=== PATIENT | male | born 1940 | race African-American/Black ===

== ENCOUNTER → 2017-01-13 | Outpatient (CLI) | payer MEDICARE, MEDICAID | END | disposition home or self-care (01) | LOC: NM 07:37 | PROVIDERS: ATTEND Urology | DX: C61 Malignant neoplasm of prostate (principal); N40.0 Benign prostatic hyperplasia without lower urinary tract symptoms; M47.816 Spondylosis without myelopathy or radiculopathy, lumbar region; M16.0 Bilateral primary osteoarthritis of hip; M17.0 Bilateral primary osteoarthritis of knee | CPT/HCPCS: 72192; 78306; A9503 ==

== ENCOUNTER → 2018-10-18 | Outpatient (CLI) | payer MEDICARE, MEDICAID | END | disposition home or self-care (01) | LOC: CT 12:25 | PROVIDERS: ATTEND Internal Medicine Cardiovascular Disease | DX: J43.9 Emphysema, unspecified (principal); Z91.81 History of falling | CPT/HCPCS: 71250 ==

== ENCOUNTER 2019-05-24 09:14 | Inpatient (IN) | payer MEDICARE, MEDICAID ==
[~2019-05-24] VITALS: Ht 175.3 cm; Wt 82.2 kg
[2019-05-24] MEDS ORDERED: CLOP75TA4 PO (11:48)
[2019-05-24] MEDS ORDERED: AMLO10TA80 PO (11:48)
[2019-05-24] MEDS ORDERED: LISI-604 PO (11:48)
[2019-05-24] MEDS ORDERED: ATOR20TA65 PO (11:48)
[2019-05-24 13:07] LABS: BASOPHILS % 0.4 % (0.0-2.0); EOSINOPHILS % 8.9 % (0.0-5.0); HEMATOCRIT. 29.5 % (42.0-52.0); HEMOGLOBIN. 9.3 g/dL (14.0-18.0); LYMPHOCYTES % 17.6 % (20.0-50.0); MEAN CORPUSCULAR HEMOGLOBIN 24.8 pg (28.0-32.0); MEAN CORPUSCULAR VOLUME 78.5 fL (80.0-94.0); MONOCYTES % 10.2 % (2.0-8.0); NEUTROPHILS % 62.9 % (40.0-76.0); PLATELET 178 x1000/uL (130-400); RED BLOOD CELL COUNT 3.75 mill/uL (4.7-6.1); RED CELL DISTRIBUTION WIDTH 16.3 % (11.6-14.6)
[2019-05-24 13:49] LABS: INR 1.2; PARTIAL THROMBOPLASTIN TIME 29.7 sec (23.4-31.0); PROTHROMBIN TIME 12.4 sec (9.6-11.0)
[2019-05-24] MEDS ORDERED: BUPIVACAINE HCL/PF 0.5% (5MG/ML) 10ML ONE (14:19)
[2019-05-24] MEDS ORDERED: THROMBIN (BOVINE) 5000 UNITS/VIAL TOP ONE ×3 (14:19→15:52)
[2019-05-24] MEDS ORDERED: LIDOCAINE HCL 1% 20ML VIAL (Pyxis) INJ ONE (14:19)
[2019-05-24] MEDS ORDERED: BACITRACIN 50,000 UNITS/VIAL ONE (14:19)
[2019-05-24] MEDS ORDERED: HEPARIN SODIUM 1,000 UNIT/1ML VIAL IV ONE (14:20)
[2019-05-24] MEDS ORDERED: BACITRACIN 15GM TUBE TOP ONE ×2 (14:20→16:12)
[2019-05-24] MEDS ORDERED: PROPOFOL 200MG/20ML VIAL IV ONE (15:00)
[2019-05-24] MEDS ORDERED: FENTANYL CITRATE/PF 50MCG/ML 2ML VIAL ONE (15:00)
[2019-05-24] MEDS ORDERED: IPRATROPIUM/ALBUTEROL 0.5-3(2.5)MG/3ML NEB HHN PRN (15:15)
[2019-05-24] MEDS ORDERED: ACETAMINOPHEN 325MG TABLET PO PRN (15:15)
[2019-05-24] MEDS ORDERED: GUAIFENESIN 200MG/10ML SUGAR FREE UDC PO PRN (15:15)
[2019-05-24] MEDS ORDERED: DOCUSATE SODIUM 100MG CAPSULE PO PRN (15:15)
[2019-05-24] MEDS ORDERED: MAGNESIUM/ALUMINUM HYDROXIDE/SIMETHICONE 30ML UDC PO PRN (15:15)
[2019-05-24] MEDS ORDERED: ONDANSETRON HCL 4MG/2ML INJ IV PRN ×2 (15:15→16:30)
[2019-05-24] MEDS ORDERED: DIPHENHYDRAMINE 50MG/ML VIAL IV PRN (15:15)
[2019-05-24] MEDS ORDERED: MIDAZOLAM HCL 2 MG/2 ML VIAL ONE (15:16)
[2019-05-24] MEDS ORDERED: METOCLOPRAMIDE HCL 10MG/2ML VIAL ONE (16:21)
[2019-05-24] MEDS ORDERED: MEPERIDINE HCL/PF 25MG/ML CPJ IV PRN (16:30)
[2019-05-24] MEDS ORDERED: HYDROMORPHONE HCL/PF 2MG/ML CPJ IV PRN (16:30)
[2019-05-24] MEDS ORDERED: MORPHINE SULFATE 2 MG/ML CPJ (NOT FOR IM USE) IV PRN (16:30)
[2019-05-24] MEDS ORDERED: SODIUM CHLORIDE 0.9% 1,000 ML IV ONE (16:48)
[2019-05-24 18:52] LABS: HEMATOCRIT 30.9 % (42.0-52.0); HEMOGLOBIN 9.5 g/dL (14.0-18.0); MEAN CORPUSCULAR HEMOGLOBIN 24.6 pg (28.0-32.0); MEAN CORPUSCULAR VOLUME 79.8 fL (80.0-94.0); PLATELET 180 x1000/uL (130-400); RED BLOOD CELL COUNT 3.87 mill/uL (4.7-6.1); RED CELL DISTRIBUTION WIDTH 16.6 % (11.6-14.6)
[2019-05-24 19:06] LABS: PHOSPHORUS 4.2 mg/dL (2.5-4.9)
[2019-05-24] MEDS: CLONIDINE 0.1MG TABLET PO PRN (21:24)
[2019-05-24] MEDS ORDERED: CEFAZOLIN SODIUM 1000MG/VIAL IV SCH (22:00)
[2019-05-24 22:42] VITALS: BP 172/96
[2019-05-25] MEDS: CEFAZOLIN 1000MG PREMIX 50 ML IV SCH ×4 (01:11→23:26)
[2019-05-25 07:32] LABS: HEMATOCRIT. 25.7 % (42.0-52.0); HEMOGLOBIN. 8.3 g/dL (14.0-18.0); MEAN CORPUSCULAR VOLUME 77.9 fL (80.0-94.0); MEAN PLATELET VOLUME 8.1 fl (7.4-10.4); PLATELET 164 x1000/uL (130-400); RED CELL DISTRIBUTION WIDTH 16.3 % (11.6-14.6)
[2019-05-25 08:00] VITALS: BP 152/75
[2019-05-25] MEDS: MORPHINE SULFATE 4 MG/ML CPJ (NOT FOR IM USE) IV PRN ×2 (09:30→16:51)
[2019-05-25 12:00] VITALS: BP 134/64
[2019-05-25 16:00] VITALS: BP 144/47
[2019-05-25 17:09] LABS: PLATELET ESTIMATE NORMAL
[2019-05-25] MEDS ORDERED: DEXTROSE 50% WATER 50ML SYRINGE IV PRN (19:30)
[2019-05-25 20:00] VITALS: BP 147/68
[2019-05-25] MEDS: BLOOD SUGAR DIAGNOSTIC STRIP TEST SCH (20:39)
[2019-05-25] MEDS: INSULIN LISPRO 100 UNITS/ML SUBCUT SCH (20:39)
[2019-05-26] VITALS: BP 167/73
[2019-05-26] MEDS: CLONIDINE 0.1MG TABLET PO PRN (01:04)
[2019-05-26 04:00] VITALS: BP 168/84
[2019-05-26] MEDS: MORPHINE SULFATE 4 MG/ML CPJ (NOT FOR IM USE) IV PRN (04:18)
[2019-05-26] MEDS: INSULIN LISPRO 100 UNITS/ML SUBCUT SCH ×2 (07:27→12:50)
[2019-05-26] MEDS: BLOOD SUGAR DIAGNOSTIC STRIP TEST SCH ×2 (07:27→12:20)
[2019-05-26] MEDS: CEFAZOLIN 1000MG PREMIX 50 ML IV SCH (07:47)
[2019-05-26 08:00] VITALS: BP 153/72
[2019-05-26 12:00] VITALS: BP 155/73
[2019-05-26 14:23] VITALS: BP 152/89
== END 2019-05-26 15:24 | disposition home or self-care (01) | DRG 253 ==
LOC: OR 09:14 → 6EST 20:28
PROVIDERS: ADMIT Internal Medicine; ATTEND Internal Medicine
PROC: 03PY0JZ Removal of Synthetic Substitute from Upper Artery, Open Approach (ICD-10-PCS; principal; 2019-05-24)
PROC: 04PY0JZ Removal of Synthetic Substitute from Lower Artery, Open Approach (ICD-10-PCS; 2019-05-24)
DX: T82.7XXA Infection and inflammatory reaction due to other cardiac and vascular devices, implants and grafts, initial encounter (principal); N17.9 Acute kidney failure, unspecified; D50.9 Iron deficiency anemia, unspecified; D72.1 Eosinophilia; F17.210 Nicotine dependence, cigarettes, uncomplicated; I10 Essential (primary) hypertension; I73.9 Peripheral vascular disease, unspecified; J44.9 Chronic obstructive pulmonary disease, unspecified; Y83.2 Surgical operation with anastomosis, bypass or graft as the cause of abnormal reaction of the patient, or of later complication, without mention of misadventure at the time of the procedure; Y92.89 Other specified places as the place of occurrence of the external cause
CPT/HCPCS: 36415; 80048; 80061; 82962; 83735; 84100; 84443; 85027; 86850; 86900; 86920; 87070; 87075; 88304; 93005; 97162; J0690; J1170; J1644; J2250; J2270; J2405; J2704; J2765; J3010; J3490; J7040

== ENCOUNTER 2019-09-17 11:11 | Inpatient (IN) | payer MEDICARE, MEDICAID ==
[~2019-09-17] VITALS: Ht 182.9 cm; Wt 818.3 kg
[~2019-09-17 11:11] MED LIST: AMLO10TA80 PO; ATOR20TA65 PO; CLOP75TA4 PO; LISI-604 PO
[2019-09-17 12:24] LABS: BASOPHILS % 0.5 % (0.0-2.0); EOSINOPHILS % 12.3 % (0.0-5.0); HEMATOCRIT. 22.4 % (42.0-52.0); LYMPHOCYTES % 16.2 % (20.0-50.0); MEAN CORPUSCULAR HEMOGLOBIN 20.9 pg (28.0-32.0); MEAN CORPUSCULAR VOLUME 68.6 fL (80.0-94.0); MEAN PLATELET VOLUME 8.6 fl (7.4-10.4); MONOCYTES % 7.9 % (2.0-8.0); NEUTROPHILS % 63.1 % (40.0-76.0); PLATELET 188 x1000/uL (130-400); RED BLOOD CELL COUNT 3.26 mill/uL (4.7-6.1); RED CELL DISTRIBUTION WIDTH 18.5 % (11.6-14.6)
[2019-09-17 12:27] LABS: HEMOGLOBIN. 6.8 g/dL (14.0-18.0)
[2019-09-17] MEDS ORDERED: SODIUM CHLORIDE 0.9% 1,000 ML IV ONE (12:32)
[2019-09-17 12:37] LABS: INR 1.2; PROTHROMBIN TIME 11.9 sec (9.6-11.0)
[2019-09-17 12:50] LABS: PLATELET ESTIMATE NORMAL
[2019-09-17] MEDS ORDERED: ONDANSETRON HCL 4MG/2ML INJ IV PRN (13:15)
[2019-09-17] MEDS ORDERED: IPRATROPIUM/ALBUTEROL 0.5-3(2.5)MG/3ML NEB HHN PRN (13:15)
[2019-09-17] MEDS ORDERED: ACETAMINOPHEN 325MG TABLET PO PRN (13:15)
[2019-09-17] MEDS ORDERED: DIPHENHYDRAMINE 50MG/ML VIAL IV PRN (13:15)
[2019-09-17] MEDS ORDERED: CLONIDINE 0.1MG TABLET PO PRN (13:15)
[2019-09-17 13:23] LABS: CHLORIDE 117 mEq/L (98-107)
[2019-09-17 14:53] LABS: CLARITY URINE CLEAR (CLEAR); COLOR URINE YELLOW (YELLOW); KETONES URINE NEGATIVE (NEGATIVE); LEUKOCYTE ESTERASE URINE NEGATIVE (NEGATIVE); NITRITE URINE NEGATIVE (NEGATIVE); OCCULT BLOOD URINE NEGATIVE (NEGATIVE); PROTEIN URINE 1+ (NEGATIVE); SPECIFIC GRAVITY URINE 1.014 (1.005-1.030); UROBILINOGEN URINE 0.2 E.U./dL (0.2-1.0)
[2019-09-17 15:05] LABS: PHOSPHORUS 3.8 mg/dL (2.5-4.9)
[2019-09-17 15:41] LABS: TOTAL IRON BINDING CAPACITY 313 ug/dL (250-450)
[2019-09-17 15:45] VITALS: BP 141/72
[2019-09-17 16:00] VITALS: BP 141/72
[2019-09-17 16:10] LABS: FOLIC ACID (FOLATE) SERUM 12.9 ng/mL (>5.38)
[2019-09-17 16:45] VITALS: BP 158/74
[2019-09-17] MEDS: DOCUSATE SODIUM 100MG CAPSULE PO SCH (17:45)
[2019-09-17 20:00] VITALS: BP 152/79
[2019-09-17] MEDS: ATORVASTATIN CALCIUM 20MG TABLET PO SCH (20:45)
[2019-09-17] MEDS: AMLODIPINE 5MG TABLET PO SCH (20:45)
[2019-09-17] MEDS: PANTOPRAZOLE SODIUM 40 MG/VIAL IV SCH (20:49)
[2019-09-17] MEDS: IRON SUCROSE COMPLEX 100 MG/5 ML ML IV SCH (20:54)
[2019-09-17] MEDS: POLYETHYLENE GLYCOL 3350 (17GM) 1 DOSE PACK PO SCH (20:55)
[2019-09-17] MEDS ORDERED: ATORVASTATIN CALCIUM 20MG TABLET PO SCH (21:00)
[2019-09-18] VITALS (12 sets, daily range): BP systolic 122–158; BP diastolic 68–84
[2019-09-18 00:26] LABS: HEMATOCRIT 23.5 % (42.0-52.0); HEMOGLOBIN 7.4 g/dL (14.0-18.0)
[2019-09-18] MEDS: AMLODIPINE 5MG TABLET PO SCH ×3 (09:00→21:11)
[2019-09-18] MEDS ORDERED: AMLODIPINE 10MG TABLET PO SCH (09:00)
[2019-09-18] MEDS: DOCUSATE SODIUM 100MG CAPSULE PO SCH ×2 (09:00→17:26)
[2019-09-18 09:36] LABS: BASOPHILS % 0.6 % (0.0-2.0); EOSINOPHILS % 8.9 % (0.0-5.0); HEMOGLOBIN. 9.9 g/dL (14.0-18.0); LYMPHOCYTES % 9.3 % (20.0-50.0); MEAN CORPUSCULAR HEMOGLOBIN 22.7 pg (28.0-32.0); MEAN CORPUSCULAR VOLUME 71.3 fL (80.0-94.0); MEAN PLATELET VOLUME 8.5 fl (7.4-10.4); MONOCYTES % 5.9 % (2.0-8.0); NEUTROPHILS % 75.3 % (40.0-76.0); PLATELET 185 x1000/uL (130-400); RED BLOOD CELL COUNT 4.34 mill/uL (4.7-6.1); RED CELL DISTRIBUTION WIDTH 21.3 % (11.6-14.6)
[2019-09-18] MEDS: PANTOPRAZOLE SODIUM 40 MG/VIAL IV SCH (09:44)
[2019-09-18 09:50] LABS: CHLORIDE 115 mEq/L (98-107)
[2019-09-18 10:08] LABS: PHOSPHORUS 3.7 mg/dL (2.5-4.9)
[2019-09-18 10:09] LABS: LDL CHOLESTEROL 77 mg/dL (5-100)
[2019-09-18 10:10] LABS: HDL CHOLESTEROL 54 mg/dL (40-59)
[2019-09-18] MEDS ORDERED: MIDAZOLAM HCL 5 MG/5 ML VIAL ONE (13:13)
[2019-09-18] MEDS ORDERED: FENTANYL CITRATE/PF 50MCG/ML 2ML VIAL ONE (13:14)
[2019-09-18] MEDS ORDERED: FENTANYL CITRATE/PF 50MCG/ML 2ML VIAL IV ONE (13:30)
[2019-09-18] MEDS ORDERED: MIDAZOLAM HCL 2 MG/2 ML VIAL IV ONE (13:30)
[2019-09-18] MEDS: FERROUS SULFATE 325MG TABLET PO SCH (17:26)
[2019-09-18] MEDS: IRON SUCROSE COMPLEX 100 MG/5 ML ML IV SCH ×2 (21:00→21:11)
[2019-09-18] MEDS: POLYETHYLENE GLYCOL 3350 (17GM) 1 DOSE PACK PO SCH ×2 (21:00→21:11)
[2019-09-18] MEDS: ATORVASTATIN CALCIUM 20MG TABLET PO SCH ×2 (21:00→21:11)
[2019-09-19 04:00] VITALS: BP 160/80
[2019-09-19 07:01] LABS: BASOPHILS % 0.4 % (0.0-2.0); EOSINOPHILS % 8.7 % (0.0-5.0); HEMATOCRIT. 27.8 % (42.0-52.0); LYMPHOCYTES % 13.2 % (20.0-50.0); MEAN CORPUSCULAR HEMOGLOBIN 23.1 pg (28.0-32.0); MEAN CORPUSCULAR VOLUME 71.5 fL (80.0-94.0); MONOCYTES % 10.2 % (2.0-8.0); NEUTROPHILS % 67.5 % (40.0-76.0); PLATELET 165 x1000/uL (130-400); RED BLOOD CELL COUNT 3.89 mill/uL (4.7-6.1); RED CELL DISTRIBUTION WIDTH 21.1 % (11.6-14.6)
[2019-09-19 08:00] VITALS: BP 166/91
[2019-09-19] MEDS: DOCUSATE SODIUM 100MG CAPSULE PO SCH ×2 (08:26→17:40)
[2019-09-19] MEDS: AMLODIPINE 5MG TABLET PO SCH (08:26)
[2019-09-19] MEDS: FERROUS SULFATE 325MG TABLET PO SCH ×2 (08:26→17:41)
[2019-09-19 12:00] VITALS: BP 114/67
[2019-09-19] MEDS ORDERED: FERR325T6 MT (15:34)
[2019-09-19 16:00] VITALS: BP 133/77
[2019-09-19 16:56] VITALS: BP 133/71
== END 2019-09-19 18:15 | disposition home or self-care (01) | DRG 378 ==
LOC: ER 11:43 → 7WST 12:56 → EDBEDREQTM 13:07 → EDBEDREQ 13:07 → ENRESERV 13:44
PROVIDERS: ADMIT Internal Medicine; ATTEND Internal Medicine
PROC: 30233N1 Transfusion of Nonautologous Red Blood Cells into Peripheral Vein, Percutaneous Approach (ICD-10-PCS; principal; 2019-09-18)
PROC: 0DJ08ZZ Inspection of Upper Intestinal Tract, Via Natural or Artificial Opening Endoscopic (ICD-10-PCS; 2019-09-18)
DX: K92.2 Gastrointestinal hemorrhage, unspecified (principal); C18.9 Malignant neoplasm of colon, unspecified; D62 Acute posthemorrhagic anemia; I13.0 Hypertensive heart and chronic kidney disease with heart failure and stage 1 through stage 4 chronic kidney disease, or unspecified chronic kidney disease; N17.9 Acute kidney failure, unspecified; E78.5 Hyperlipidemia, unspecified; D63.0 Anemia in neoplastic disease; F17.210 Nicotine dependence, cigarettes, uncomplicated; I50.9 Heart failure, unspecified; J32.9 Chronic sinusitis, unspecified; I73.9 Peripheral vascular disease, unspecified; I44.1 Atrioventricular block, second degree; J44.9 Chronic obstructive pulmonary disease, unspecified; N18.3 Chronic kidney disease, stage 3 (moderate); D50.9 Iron deficiency anemia, unspecified; Z85.46 Personal history of malignant neoplasm of prostate; Z86.73 Personal history of transient ischemic attack (TIA), and cerebral infarction without residual deficits; Z92.3 Personal history of irradiation; Z82.49 Family history of ischemic heart disease and other diseases of the circulatory system; K31.819 Angiodysplasia of stomach and duodenum without bleeding
CPT/HCPCS: 36415; 71045; 80048; 80053; 80061; 81003; 82607; 82728; 82746; 83540; 83550; 83735; 84100; 84443; 85014; 85018; 85025; 85049; 85384; 86850; 86900; 86920; 93005; 93970; 99285; A6261; C9113; J2250; J3010; J7030; P9016; P9021

== ENCOUNTER 2021-06-29 14:37 | Inpatient (IN) | payer MEDICARE, MEDICAID ==
[~2021-06-29] VITALS: Ht 180.3 cm; Wt 75.7 kg
[~2021-06-29 14:37] MED LIST changes: -CLOP75TA4 PO; +FERR325T6 MT; -LISI-604 PO
[2021-06-29 16:22] LABS: BG BASE EXCESS -4.6 mmol/L (-2.0-2.0); BG CARBOXYHEMOGLOBIN 1.1 % (0.5-1.5); BG DEOXYHEMOGLOBIN 3.6 % (0.0-5.0); BG FRACTION INSPIRED OXYGEN 21; BG HCO3 ACT 19.4 mmol/L (22.0-26.0); BG METHEMOGLOBIN 0.2 % (0.0-1.5); BG OXYGEN SATURATION 96.4 % (92.0-98.5); BG OXYHEMOGLOBIN 95.1 % (94.0-97.0); BG PCO2 31.6 mmHg (35.0-45.0); BG PH 7.405 (7.350-7.450); BG PO2 85.5 mmHg (75.0-100.0); BG SAMPLE SITE LEFT RADIAL; BG VENT MODE ROOM AIR
[2021-06-29 17:35] LABS: BASOPHILS % 0.6 % (0.0-2.0); EOSINOPHILS % 6.3 % (0.0-5.0); HEMATOCRIT. 30.2 % (42.0-52.0); HEMOGLOBIN. 9.6 g/dL (14.0-18.0); LYMPHOCYTES % 12.7 % (20.0-50.0); MEAN CORPUSCULAR HEMOGLOBIN 25.3 pg (28.0-32.0); MEAN CORPUSCULAR VOLUME 79.4 fL (80.0-94.0); MEAN PLATELET VOLUME 8.3 fl (7.4-10.4); MONOCYTES % 8.4 % (2.0-8.0); PLATELET 188 x1000/uL (130-400); RED BLOOD CELL COUNT 3.81 mill/uL (4.7-6.1); RED CELL DISTRIBUTION WIDTH 16.5 % (11.6-14.6)
[2021-06-29 17:42] LABS: CHLORIDE 113 mEq/L (98-107)
[2021-06-29 17:45] LABS: ETHANOL BLOOD < 10 mg/dL
[2021-06-29] MEDS ORDERED: SODIUM CHLORIDE 0.9% 1,000 ML IV ONE (18:30)
[2021-06-29 21:01] LABS: CLARITY URINE CLEAR (CLEAR); COLOR URINE YELLOW (YELLOW); KETONES URINE NEGATIVE (NEGATIVE); LEUKOCYTE ESTERASE URINE NEGATIVE (NEGATIVE); NITRITE URINE NEGATIVE (NEGATIVE); OCCULT BLOOD URINE 1+ (NEGATIVE); PH URINE 5.5 (4.5-8.0); PROTEIN URINE 3+ (NEGATIVE); SPECIFIC GRAVITY URINE 1.016 (1.005-1.030); UROBILINOGEN URINE 0.2 E.U./dL (0.2-1.0)
[2021-06-29 21:12] LABS: *AMPHETAMINES SCREEN URINE NEGATIVE (NEGATIVE); *BARBITURATES SCREEN URINE NEGATIVE (NEGATIVE); *BENZODIAZEPINES SCREEN URINE NEGATIVE (NEGATIVE); *COCAINE SCREEN URINE NEGATIVE (NEGATIVE); METHADONE URINE SCREEN NEGATIVE (NEGATIVE); OPIATES URINE SCREEN NEGATIVE (NEGATIVE); PHENCYCLIDINE URINE SCREEN NEGATIVE (NEGATIVE)
[2021-06-29 21:13] LABS: CANNABINOID URINE SCREEN NEGATIVE (NEGATIVE)
[2021-06-30] MEDS ORDERED: GUAIFENESIN 200MG/10ML SUGAR FREE UDC PO PRN (01:45)
[2021-06-30] MEDS ORDERED: ONDANSETRON HCL 4MG/2ML INJ IV PRN (01:45)
[2021-06-30] MEDS ORDERED: IPRATROPIUM/ALBUTEROL 0.5-3(2.5)MG/3ML NEB NEB PRN (01:45)
[2021-06-30] MEDS ORDERED: ACETAMINOPHEN 325MG TABLET PO PRN ×2 (01:45)
[2021-06-30] MEDS: SODIUM CHLORIDE 0.9% INJ 3ML FLUSH IVF SCH ×3 (06:03→22:41)
[2021-06-30] MEDS: ENOXAPARIN 30MG/0.3ML SYR SUBCUT SCH (10:02)
[2021-06-30] MEDS ORDERED: LORAZEPAM 2MG/ML CPJ IV PRN (17:53)
[2021-07-01] VITALS: BP 146/86
[2021-07-01 04:00] VITALS: BP 168/79
[2021-07-01 04:37] LABS: PHOSPHORUS 3.6 mg/dL (2.5-4.9)
[2021-07-01] MEDS: SODIUM CHLORIDE 0.9% INJ 3ML FLUSH IVF SCH ×3 (06:32→21:54)
[2021-07-01] MEDS ORDERED: CLOP75TA33 PO (06:44)
[2021-07-01] MEDS ORDERED: HYDR-4009 PO (06:44)
[2021-07-01] MEDS ORDERED: LISI20TA31 PO (06:44)
[2021-07-01] MEDS ORDERED: ASPI-1406 PO (06:44)
[2021-07-01 08:00] VITALS: BP 177/96
[2021-07-01] MEDS ORDERED: PNEUMOCOCCAL 23-VAL P-SAC VAC 0.5 ML IM ONE (08:00)
[2021-07-01] MEDS ORDERED: INFLUENZA VACCINE 05/PF 0.5 ML SYRINGE IM ONE (10:00)
[2021-07-01] MEDS: CLONIDINE 0.1MG TABLET PO PRN ×3 (10:04→18:48)
[2021-07-01] MEDS: ENOXAPARIN 30MG/0.3ML SYR SUBCUT SCH (11:31)
[2021-07-01 12:00] VITALS: BP 108/64
[2021-07-01 16:00] VITALS: BP 99/64
[2021-07-01 20:00] VITALS: BP 153/66
[2021-07-01] MEDS: ATORVASTATIN CALCIUM 20MG TABLET PO SCH (21:54)
[2021-07-02] VITALS: BP 157/80
[2021-07-02 04:00] VITALS: BP 172/76
[2021-07-02] MEDS: SODIUM CHLORIDE 0.9% INJ 3ML FLUSH IVF SCH ×3 (06:27→21:09)
[2021-07-02 08:00] VITALS: BP 172/88
[2021-07-02] MEDS: CLONIDINE 0.1MG TABLET PO PRN (09:17)
[2021-07-02] MEDS: ENOXAPARIN 30MG/0.3ML SYR SUBCUT SCH (09:18)
[2021-07-02 12:05] VITALS: BP 136/69
[2021-07-02] MEDS: ASPIRIN 81MG TABLET PO SCH (12:06)
[2021-07-02 15:32] VITALS: BP 133/66
[2021-07-02] MEDS: DILTIAZEM HCL 120MG CAPSULE CD 24HR PO SCH (15:42)
[2021-07-02] MEDS ORDERED: DILT120C88 PO (19:27)
[2021-07-02] MEDS ORDERED: ATOR20TA PO (19:27)
[2021-07-02 20:00] VITALS: BP 144/67
[2021-07-02] MEDS: ATORVASTATIN CALCIUM 20MG TABLET PO SCH (21:09)
[2021-07-02 21:34] LABS: BASOPHILS % 0.7 % (0.0-2.0); EOSINOPHILS % 8.1 % (0.0-5.0); HEMATOCRIT. 28.6 % (42.0-52.0); HEMOGLOBIN. 9.2 g/dL (14.0-18.0); LYMPHOCYTES % 13.4 % (20.0-50.0); MEAN CORPUSCULAR HEMOGLOBIN 25.6 pg (28.0-32.0); MEAN CORPUSCULAR VOLUME 79.7 fL (80.0-94.0); MEAN PLATELET VOLUME 7.8 fl (7.4-10.4); MONOCYTES % 9.5 % (2.0-8.0); NEUTROPHILS % 68.3 % (40.0-76.0); PLATELET 150 x1000/uL (130-400); RED BLOOD CELL COUNT 3.59 mill/uL (4.7-6.1); RED CELL DISTRIBUTION WIDTH 16.5 % (11.6-14.6)
[2021-07-02 21:43] LABS: CHLORIDE 114 mEq/L (98-107)
[2021-07-03] VITALS: BP 129/75
[2021-07-03 04:00] VITALS: BP 158/79
[2021-07-03] MEDS: SODIUM CHLORIDE 0.9% INJ 3ML FLUSH IVF SCH ×3 (05:57→21:32)
[2021-07-03 08:05] VITALS: BP 170/71
[2021-07-03] MEDS: ENOXAPARIN 30MG/0.3ML SYR SUBCUT SCH (08:12)
[2021-07-03] MEDS: ASPIRIN 81MG TABLET PO SCH (08:13)
[2021-07-03] MEDS: CLOPIDOGREL 75MG TABLET PO SCH (08:13)
[2021-07-03] MEDS: DILTIAZEM HCL 120MG CAPSULE CD 24HR PO SCH (08:13)
[2021-07-03 12:02] VITALS: BP 115/85
[2021-07-03 15:45] VITALS: BP 132/84
[2021-07-03 20:00] VITALS: BP 154/88
[2021-07-03] MEDS: ATORVASTATIN CALCIUM 20MG TABLET PO SCH (21:28)
[2021-07-03] MEDS: AMLODIPINE 5MG TABLET PO SCH (21:31)
[2021-07-04] VITALS: BP 159/89
[2021-07-04 04:00] VITALS: BP 149/74
[2021-07-04] MEDS: SODIUM CHLORIDE 0.9% INJ 3ML FLUSH IVF SCH ×3 (06:41→21:01)
[2021-07-04 08:00] VITALS: BP 145/70
[2021-07-04] MEDS: CLOPIDOGREL 75MG TABLET PO SCH (08:54)
[2021-07-04] MEDS: ASPIRIN 81MG TABLET PO SCH (08:54)
[2021-07-04] MEDS: AMLODIPINE 5MG TABLET PO SCH (08:54)
[2021-07-04] MEDS: ENOXAPARIN 30MG/0.3ML SYR SUBCUT SCH (08:55)
[2021-07-04] MEDS ORDERED: DILTIAZEM HCL 180MG CAPSULE CD 24HR PO SCH (09:00)
[2021-07-04 12:00] VITALS: BP 153/80
[2021-07-04 16:00] VITALS: BP 117/75
[2021-07-04] MEDS: HYDRALAZINE HCL 25MG TABLET PO SCH ×2 (17:30→21:01)
[2021-07-04 20:00] VITALS: BP 113/76
[2021-07-04] MEDS: ATORVASTATIN CALCIUM 20MG TABLET PO SCH (21:01)
[2021-07-05] VITALS: BP 129/77
[2021-07-05] MEDS: HYDRALAZINE HCL 25MG TABLET PO SCH ×2 (05:21→16:50)
[2021-07-05] MEDS: SODIUM CHLORIDE 0.9% INJ 3ML FLUSH IVF SCH ×2 (05:22→16:50)
[2021-07-05 05:28] VITALS: BP 160/87
[2021-07-05 08:00] VITALS: BP 134/68
[2021-07-05] MEDS: ASPIRIN 81MG TABLET PO SCH (09:46)
[2021-07-05] MEDS: CLOPIDOGREL 75MG TABLET PO SCH (09:46)
[2021-07-05] MEDS: ENOXAPARIN 30MG/0.3ML SYR SUBCUT SCH (09:46)
[2021-07-05 16:00] VITALS: BP_SYST 107; BP_SYST 174; BP_DIAS 80; BP_DIAS 91
[2021-07-05 18:00] VITALS: BP 133/82
[2021-07-05 18:03] VITALS: BP 133/82
== END 2021-07-05 18:45 | disposition home or self-care (01) | DRG 65 ==
LOC: ER 14:37 → EDBEDREQ 15:26 → EDBEDREQSVC 18:46 → EDBEDREQTM 18:46 → EDBEDREQSVC 20:28 → EDBEDREQTM 20:28 → EDBEDREQ 20:28 → MICUSO 06-30 03:03 → 6WST 06-30 21:31
PROVIDERS: ADMIT Internal Medicine; ATTEND Internal Medicine
DX: I63.511 Cerebral infarction due to unspecified occlusion or stenosis of right middle cerebral artery (principal); G81.94 Hemiplegia, unspecified affecting left nondominant side; F17.210 Nicotine dependence, cigarettes, uncomplicated; F03.90 Unspecified dementia, unspecified severity, without behavioral disturbance, psychotic disturbance, mood disturbance, and anxiety; D64.9 Anemia, unspecified; I12.9 Hypertensive chronic kidney disease with stage 1 through stage 4 chronic kidney disease, or unspecified chronic kidney disease; E78.00 Pure hypercholesterolemia, unspecified; J44.9 Chronic obstructive pulmonary disease, unspecified; E78.5 Hyperlipidemia, unspecified; R53.1 Weakness; I44.1 Atrioventricular block, second degree; N18.2 Chronic kidney disease, stage 2 (mild); Z71.6 Tobacco abuse counseling; Z82.3 Family history of stroke; Z86.73 Personal history of transient ischemic attack (TIA), and cerebral infarction without residual deficits; Z23 Encounter for immunization
CPT/HCPCS: 36415; 36600; 70551; 71045; 80048; 80053; 80061; 80305; 80320; 81003; 82375; 82805; 83605; 83735; 83880; 84100; 84484; 85025; 90686; 90732; 93005; 93306; 93880; 95816; 97110; 97162; 97166; 97530; 99285; J1650; J7030; G0480